=== PATIENT | male | born 1950 | race African-American/Black ===

== ENCOUNTER 2018-11-25 08:29 | Inpatient (IN) | payer OTHER ==
[~2018-11-25] VITALS: Ht 180.3 cm; Wt 135.7 kg
[2018-11-25] MEDS ORDERED: ATEN-42 PO (08:44)
[2018-11-25] MEDS ORDERED: SODIUM CHLORIDE 0.9% 1,000 ML IV ONE (09:13)
[2018-11-25 10:10] LABS: INR 1.1; PROTHROMBIN TIME 11.2 sec (9.1-11.1)
[2018-11-25 10:11] LABS: CHLORIDE 108 mEq/L (98-107); HEMATOCRIT. 39.5 % (42.0-52.0); HEMOGLOBIN. 12.8 g/dL (14.0-18.0); MEAN CORPUSCULAR HEMOGLOBIN 27.8 pg (28.0-32.0); MEAN CORPUSCULAR VOLUME 86.1 fL (80.0-94.0); MEAN PLATELET VOLUME 8.3 fl (7.4-10.4); PLATELET 239 x1000/uL (130-400); RED BLOOD CELL COUNT 4.59 mill/uL (4.7-6.1); RED CELL DISTRIBUTION WIDTH 13.9 % (11.6-14.6)
[2018-11-25] MEDS ORDERED: PIPERACILLIN/TAZ 3.375G PREMIX 50 ML IV ONE (11:00)
[2018-11-25] MEDS ORDERED: SODIUM CHLORIDE 0.9% 1000ML BAG (SEPSIS BOLUS) IV ONE (11:00)
[2018-11-25] MEDS ORDERED: VANCOMYCIN 1 G PREMIX 200 ML IV ONE (11:00)
[2018-11-25 11:22] LABS: PLATELET ESTIMATE NORMAL
[2018-11-25] MEDS ORDERED: GUAIFENESIN 200MG/10ML SUGAR FREE UDC PO PRN (11:45)
[2018-11-25] MEDS ORDERED: DOCUSATE SODIUM 100MG CAPSULE PO PRN (11:45)
[2018-11-25] MEDS ORDERED: IPRATROPIUM/ALBUTEROL 0.5-3(2.5)MG/3ML NEB INH PRN (11:45)
[2018-11-25] MEDS ORDERED: ONDANSETRON HCL 4MG/2ML INJ IV PRN (11:45)
[2018-11-25] MEDS ORDERED: ACETAMINOPHEN 325MG TABLET PO PRN (11:45)
[2018-11-25] MEDS ORDERED: CLONIDINE 0.1MG TABLET PO PRN (11:45)
[2018-11-25] MEDS ORDERED: MAGNESIUM/ALUMINUM HYDROXIDE/SIMETHICONE 30ML UDC PO PRN (11:45)
[2018-11-25] MEDS ORDERED: HYDROCODONE/ACETAMINOPHEN 5/325MG TABLET PO PRN (11:45)
[2018-11-25 13:42] LABS: CHLORIDE 106 mEq/L (98-107)
[2018-11-25 13:51] LABS: CREATINE KINASE 354 IU/L (39-308)
[2018-11-25 13:52] LABS: CREATINE KINASE MB FRACTION 1.5 ng/mL (0.5-3.6)
[2018-11-25 18:14] VITALS: BP 130/67
[2018-11-25] MEDS: SODIUM CHLORIDE 0.9% 1,000 ML IV SCH (18:15)
[2018-11-25 19:12] LABS: CLARITY URINE TURBID (CLEAR); COLOR URINE YELLOW (YELLOW); KETONES URINE TRACE (NEGATIVE); LEUKOCYTE ESTERASE URINE 3+ (NEGATIVE); NITRITE URINE NEGATIVE (NEGATIVE); OCCULT BLOOD URINE 1+ (NEGATIVE); PH URINE 7.5 (4.5-8.0); PROTEIN URINE 3+ (NEGATIVE); SPECIFIC GRAVITY URINE 1.022 (1.005-1.030)
[2018-11-25 19:53] LABS: *AMPHETAMINES SCREEN URINE NEGATIVE (NEGATIVE); *BARBITURATES SCREEN URINE NEGATIVE (NEGATIVE); *BENZODIAZEPINES SCREEN URINE NEGATIVE (NEGATIVE); *COCAINE SCREEN URINE NEGATIVE (NEGATIVE); CANNABINOID URINE SCREEN NEGATIVE (NEGATIVE); METHADONE URINE SCREEN NEGATIVE (NEGATIVE); OPIATES URINE SCREEN NEGATIVE (NEGATIVE); PHENCYCLIDINE URINE SCREEN NEGATIVE (NEGATIVE)
[2018-11-25 20:00] VITALS: BP 135/65
[2018-11-25] MEDS ORDERED: VANCOMYCIN 1500MG in DEXTROSE 5% WATER 250ML IV NR (20:00)
[2018-11-25] MEDS: PIPERACILLIN/TAZ 3.375G PREMIX 50 ML IV SCH (21:29)
[2018-11-25] MEDS: HEPARIN 5000 UNITS/ML VIAL SUBCUT SCH (21:34)
[2018-11-25 22:00] VITALS: BP 126/58
[2018-11-25 23:55] LABS: CREATINE KINASE 566 IU/L (39-308); CREATINE KINASE MB FRACTION 1.1 ng/mL (0.5-3.6)
[2018-11-26] VITALS (11 sets, daily range): BP systolic 115–145; BP diastolic 66–89
[2018-11-26] MEDS: PIPERACILLIN/TAZ 3.375G PREMIX 50 ML IV SCH ×3 (05:35→17:24)
[2018-11-26] MEDS: SODIUM CHLORIDE 0.9% 1,000 ML IV SCH ×2 (05:36→19:15)
[2018-11-26 07:00] LABS: HEMOGLOBIN. 10.8 g/dL (14.0-18.0); MEAN CORPUSCULAR HEMOGLOBIN 27.8 pg (28.0-32.0); MEAN CORPUSCULAR VOLUME 84.8 fL (80.0-94.0); PLATELET 208 x1000/uL (130-400); RED BLOOD CELL COUNT 3.89 mill/uL (4.7-6.1); RED CELL DISTRIBUTION WIDTH 13.9 % (11.6-14.6)
[2018-11-26] MEDS: HEPARIN 5000 UNITS/ML VIAL SUBCUT SCH ×2 (08:45→21:08)
[2018-11-26] MEDS ORDERED: VANCOMYCIN 1 G PREMIX 200 ML IV SCH (12:00)
[2018-11-26] MEDS ORDERED: DEXTROSE 50% WATER 50ML SYRINGE IV PRN (13:00)
[2018-11-26 14:02] LABS: PLATELET ESTIMATE NORMAL
[2018-11-26] MEDS: BLOOD SUGAR DIAGNOSTIC STRIP TEST SCH ×2 (16:40→21:09)
[2018-11-26] MEDS: ATENOLOL 25MG TABLET PO SCH (17:10)
[2018-11-26] MEDS: INSULIN LISPRO 100 UNITS/ML SUBCUT SCH ×2 (17:23→21:11)
[2018-11-26] MEDS ORDERED: PIPERACILLIN/TAZ 3.375G PREMIX 50 ML IV SCH (19:00)
[2018-11-27] VITALS (10 sets, daily range): BP systolic 114–143; BP diastolic 48–77
[2018-11-27] MEDS: PIPERACILLIN/TAZ 3.375G PREMIX 50 ML IV SCH ×4 (05:43→18:00)
[2018-11-27] MEDS: BLOOD SUGAR DIAGNOSTIC STRIP TEST SCH ×3 (05:43→16:50)
[2018-11-27] MEDS: INSULIN LISPRO 100 UNITS/ML SUBCUT SCH ×3 (05:43→17:20)
[2018-11-27] MEDS: ATENOLOL 25MG TABLET PO SCH (08:23)
[2018-11-27] MEDS: HEPARIN 5000 UNITS/ML VIAL SUBCUT SCH (08:24)
[2018-11-27 09:43] LABS: BASOPHILS % 0.5 % (0.0-2.0); EOSINOPHILS % 2.6 % (0.0-5.0); HEMATOCRIT. 34.9 % (42.0-52.0); HEMOGLOBIN. 11.3 g/dL (14.0-18.0); MEAN CORPUSCULAR HEMOGLOBIN 27.3 pg (28.0-32.0); MEAN CORPUSCULAR VOLUME 84.6 fL (80.0-94.0); MEAN PLATELET VOLUME 8.1 fl (7.4-10.4); MONOCYTES % 5.3 % (2.0-8.0); NEUTROPHILS % 83.6 % (40.0-76.0); PLATELET 212 x1000/uL (130-400); RED BLOOD CELL COUNT 4.13 mill/uL (4.7-6.1); RED CELL DISTRIBUTION WIDTH 13.6 % (11.6-14.6)
== END 2018-11-27 18:54 | disposition left against medical advice (07) | DRG 871 ==
LOC: ER 08:29 → EDBD 08:29 → 3WST 11:29 → EDBEDREQ 11:37 → EDBEDREQTM 11:37 → CANRESERV 12:43 → ENRESERV 12:43
PROVIDERS: ADMIT Internal Medicine; ATTEND Internal Medicine
DX: A41.9 Sepsis, unspecified organism (principal); N17.0 Acute kidney failure with tubular necrosis; E87.2 Acidosis; N17.9 Acute kidney failure, unspecified; N28.89 Other specified disorders of kidney and ureter; Z79.4 Long term (current) use of insulin; E11.36 Type 2 diabetes mellitus with diabetic cataract; I11.9 Hypertensive heart disease without heart failure
CPT/HCPCS: 36415; 71045; 72148; 76770; 80048; 80061; 80305; 82550; 82553; 82962; 83605; 83735; 84145; 84443; 84484; 87077; 87186; 93005; 93970; 96361; 96365; 97162; 97166; 99291; C1893; J1644; J1815; J2543; J3370; J7030; J7040; J7060

== ENCOUNTER 2021-04-04 08:23 | Emergency (ER) | payer OTHER ==
[~2021-04-04] VITALS: Ht 182.9 cm; Wt 134.0 kg
[~2021-04-04 08:23] MED LIST: ATEN-42 PO
[2021-04-04] MEDS ORDERED: OXYCODONE HCL/ACETAMINOPHEN 5/325MG TABLET PO ONE (10:45)
[2021-04-04] MEDS ORDERED: KETOROLAC 60MG/2ML VIAL IM ONE (10:45)
[2021-04-04] MEDS ORDERED: TOPUD PO (13:32)
[2021-04-04 16:00] VITALS: BP 128/72
== END 2021-04-04 16:48 | disposition home or self-care (01) ==
LOC: ER 08:23
DX: M54.5 Low back pain (principal); M25.512 Pain in left shoulder; E11.9 Type 2 diabetes mellitus without complications; I10 Essential (primary) hypertension; W18.39XA Other fall on same level, initial encounter; Y93.89 Activity, other specified; Y92.018 Other place in single-family (private) house as the place of occurrence of the external cause
CPT/HCPCS: 72100; 73030; 93005; 96372; 99285; J1885